=== PATIENT | male | born 1955 | race American Indian/Alaskan Native ===

== ENCOUNTER 2018-12-20 13:44 | Emergency (ER) | payer SELFPAY ==
[2018-12-20 14:04] VITALS: BP 149/97
[2018-12-20 14:42] LABS: Hematocrit 43.7 % (35.5-45.6); Hemoglobin 14.8 gm/dl (11.8-15.2); Mean Corpuscular HGB Conc 34 % (32-34); Mean Corpuscular Volume 84 fl (84-94); Platelet Count 214 K/mm3 (140-440); Red Blood Count 5.22 M/mm3 (3.65-5.03); Red Cell Distribution Width 15.2 % (13.2-15.2)
--- NOTE | 2018-12-20 14:43 | Emergency Department Report ---
ED Chest Pain HPI - General Chief Complaint: Chest Pain Stated Complaint: CHEST PAIN/NUMBNESS HANDS/FEET Time Seen by Provider: 12/20/18 14:15 Source: patient Mode of arrival: Ambulatory Limitations: No Limitations - History of Present Illness Initial Comments: 63 YO MALE WITH VAGUE HISTORY OF SUBSTERNAL CP WITH NUMBNESS IN HANDS AND FEET. HE IS AMBULATORY AND NON TOXIC THIS HAS BEEN OCCURRING OFF AND ON FOR MONTHS. HE IS JUST CONCERNED TODAY SO CAME TO THE ER -: week(s) Onset: during rest, during exertion Pain Location: substernal Pain Radiation: none Quality: aching Consistency: intermittent Improves With: nothing Worsens With: nothing re: denies: nausea, vomting, diaphoresis, dyspnea, sense of impending doom Other Symptoms: denies: cough, fever, syncope, rash, acid taste in mouth, leg swelling, palpitations, burping Treatments Prior to Arrival: none - Related Data On Oral Contraceptives: No Allergies Allergy/AdvReac Type Severity Reaction Status Date / Time No Known Allergies Allergy Unverified 12/20/18 14:01 Heart Score - HEART Score History: Slightly suspicious EKG: Normal Age: < 45 Risk factors: 1-2 risk factors Troponin: < normal limit HEART Score: 1 - Critical Actions Critical Actions: 0-3 pts:0.9-1.7%risk of adverse cardiac event.Candidate for discharge ED Review of Systems ROS: Stated complaint: CHEST PAIN/NUMBNESS HANDS/FEET Other details as noted in HPI Comment: All other systems reviewed and negative Constitutional: denies: chills Eyes: denies: eye pain ENT: denies: ear pain Respiratory: denies: cough Cardiovascular: as per HPI, chest pain Endocrine: denies: excessive sweating Gastrointestinal: denies: nausea Genitourinary: denies: urgency Musculoskeletal: denies: back pain Skin: denies: lesions Neurological: as per HPI Psychiatric: denies: depression Hematological/Lymphatic: denies: easy bleeding ED Past Medical Hx - Past Medical History Previous Medical History?: No - Surgical History Additional Surgical History: plate in leg - Family History Family history: no significant - Social History Smoking Status: Former Smoker Substance Use Type: None ED Physical Exam - General Limitations: No Limitations General appearance: alert - Head Head exam: Present: atraumatic - Eye Eye exam: Present: normal appearance Pupils: Present: normal accommodation - ENT ENT exam: Present: normal exam - Neck Neck exam: Present: normal inspection - Respiratory Respiratory exam: Present: normal lung sounds bilaterally - Cardiovascular Cardiovascular Exam: Present: regular rate - GI/Abdominal GI/Abdominal exam: Present: soft - Rectal Rectal exam: Present: deferred - Extremities Exam Extremities exam: Present: normal inspection, full ROM - Back Exam Back exam: Present: normal inspection, full ROM - Neurological Exam Neurological exam: Present: alert, oriented X3, CN II-XII intact - Psychiatric Psychiatric exam: Present: normal affect, normal mood - Skin Skin exam: Present: warm, dry, intact ED Course Vital Signs 12/20/18 14:01 Temperature 98.1 F Pulse Rate 60 Respiratory 20 Rate Blood Pressure 149/97 O2 Sat by Pulse 100 Oximetry NIA score - Nia Score Age > 65: (0) No Aspirin use within the Past 7 Days: (0) No 3 or more CAD Risk Factors: (0) No 2 or more Angina events in past 24 hrs: (0) No Known CAD with more than 50% Stenosis: (0) No Elevated Cardiac Markers: (0) No ST Deviation Greater than 0.5mm: (0) No NIA Score: 0 ED Medical Decision Making - Lab Data Result diagrams: 12/20/18 14:34 12/20/18 14:34 - EKG Data EKG shows normal: sinus rhythm - EKG Data When compared to previous EKG there are: no significant change Interpretation: no acute changes - Medical Decision Making Labs 12/20/18 12/20/18 14:34 14:34 WBC 6.4 RBC 5.22 H Hgb 14.8 Hct 43.7 MCV 84 MCH 29 MCHC 34 RDW 15.2 Plt Count 214 Sodium 145 Potassium 4.2 Chloride 106.5 Carbon Dioxide 28 Anion Gap 15 BUN 11 Creatinine 0.9 Estimated GFR > 60 BUN/Creatinine Ratio 12 Glucose 108 H Calcium 9.0 Total Bilirubin 0.50 AST 9 ALT 9 Alkaline Phosphatase 68 Troponin T < 0.010 Total Protein 7.3 Albumin 4.0 Albumin/Globulin Ratio 1.2 - Differential Diagnosis RO ACS Critical care attestation.: If time is entered above; I have spent that time in minutes in the direct care of this critically ill patient, excluding procedure time. ED Disposition Clinical Impression: Non-cardiac chest pain Disposition: TO HOME OR SELFCARE Is pt being admited?: No Does the pt Need Aspirin: No Condition: Stable Instructions: Chest Pain (ED) Additional Instructions: TRACK WHAT CAUSES YOUR PAIN AND WHAT MAKES IT BETTER OVER THE COUNTER SYMPTOM RELIEF FOLLOW UP WITH PCP REFERRAL BELOW STAY HYDRATED 2G OF WATER PER DAY Referrals: PRIMARY CARE, [Primary Care Provider] - 3-5 Days APPLE LANDIS MD [Staff Physician] - 3-5 Days Time of Disposition: 15:27
[2018-12-20 15:01] LABS: Alanine Aminotransferase 9 units/L (7-56); BUN/Creatinine Ratio 12; Blood Urea Nitrogen 11 mg/dL (9-20); Hemolysis Index 4
--- NOTE | 2018-12-20 15:23 | XRay Report ---
ROUTINE CHEST, TWO VIEWS: HISTORY: chest pain. The trachea, heart, mediastinal contour, lung kasper and bony thorax are unremarkable. IMPRESSION: Unremarkable chest x-ray.
[2018-12-20] MEDS ORDERED: ALUM-MAG HYDROX-SIMETH 200-200-20MG/5ML PO ONE (15:26)
[2018-12-20] MEDS ORDERED: PEPCID PO ONE (15:26)
[2018-12-20] MEDS ORDERED: LIDOCAINE VISCOUS 2% PO ONE (15:26)
== END 2018-12-20 15:41 | disposition home or self-care (01) ==
LOC: ED 13:44
DX: R07.89 Other chest pain (principal)
CPT/HCPCS: 36415; 71046; 80053; 84484; 85027; 93005; 93010